=== PATIENT | male | born 1950 | race Two or more races ===

== ENCOUNTER 2018-04-03 07:47 | Outpatient (CLI) | payer OTHER ==
[~2018-04-03] VITALS: Ht 185.4 cm; Wt 90.7 kg
== END 2018-04-03 08:00 | disposition home or self-care (01) ==
LOC: OFIC 805 07:47
DX: H90.3 Sensorineural hearing loss, bilateral (principal); H93.13 Tinnitus, bilateral; J31.0 Chronic rhinitis

== ENCOUNTER 2018-04-23 06:56 | Outpatient (CLI) | payer OTHER | END 2018-04-23 07:28 | disposition home or self-care (01) | LOC: SONOGRAMA 06:56 | DX: E04.2 Nontoxic multinodular goiter (principal) ==

== ENCOUNTER 2021-05-11 10:30 | Outpatient (CLI) | payer OTHER | END 2021-05-11 11:30 | disposition home or self-care (01) | LOC: PPH VACUNA 10:30 | PROVIDERS: ATTEND Emergency Medicine Pediatric Emergency Medicine | DX: Z23 Encounter for immunization (principal) ==

== ENCOUNTER 2022-01-30 07:42 | Outpatient (CLI) | payer OTHER | END 2022-01-30 07:43 | disposition home or self-care (01) | LOC: SONOGRAMA 07:42 | PROVIDERS: ATTEND Pathology Anatomic Pathology & Clinical Pathology | DX: E04.1 Nontoxic single thyroid nodule (principal) ==

== ENCOUNTER 2022-06-06 07:06 | Outpatient (CLI) | payer OTHER | END 2022-06-06 07:15 | disposition home or self-care (01) | LOC: SONOGRAMA 07:06 | PROVIDERS: ATTEND Urology | DX: N40.0 Benign prostatic hyperplasia without lower urinary tract symptoms (principal); N20.0 Calculus of kidney; R31.1 Benign essential microscopic hematuria ==

== ENCOUNTER 2022-08-23 10:34 | Outpatient (CLI) | payer OTHER | END 2022-08-23 10:44 | disposition home or self-care (01) | LOC: PPH VACUNA 10:34 | PROVIDERS: ATTEND Emergency Medicine Pediatric Emergency Medicine | DX: Z23 Encounter for immunization (principal) ==

== ENCOUNTER 2023-05-31 10:37 | Outpatient (CLI) | payer OTHER | END 2023-05-31 10:51 | disposition home or self-care (01) | LOC: SONOGRAMA 10:37 | PROVIDERS: ATTEND Internal Medicine Endocrinology, Diabetes & Metabolism | DX: E04.1 Nontoxic single thyroid nodule (principal); N40.0 Benign prostatic hyperplasia without lower urinary tract symptoms; N20.0 Calculus of kidney; I11.9 Hypertensive heart disease without heart failure; E78.00 Pure hypercholesterolemia, unspecified ==

== ENCOUNTER 2023-06-06 07:09 | Outpatient (CLI) | payer OTHER | END 2023-06-06 08:06 | disposition home or self-care (01) | LOC: SONOGRAMA 07:09 | PROVIDERS: ATTEND Internal Medicine Endocrinology, Diabetes & Metabolism | DX: E11.40 Type 2 diabetes mellitus with diabetic neuropathy, unspecified (principal); N18.2 Chronic kidney disease, stage 2 (mild); I11.0 Hypertensive heart disease with heart failure; Z88.3 Allergy status to other anti-infective agents ==